=== PATIENT | female | born 1980 | race Caucasian/White ===

== ENCOUNTER → 2021-01-21 11:29 | Outpatient (BNVA) | payer OTHER, SELFPAY | PROVIDERS: Visit Provider Nurse Practitioner Family | DX: R82.90 Unspecified abnormal findings in urine (principal) | CPT/HCPCS: 81000 ==

== ENCOUNTER → 2021-03-14 11:20 | Outpatient (BNVA) | payer OTHER, SELFPAY | PROVIDERS: PCP Nurse Practitioner Family; Visit Provider Nurse Practitioner Family | DX: M25.50 Pain in unspecified joint (principal); R53.83 Other fatigue; R03.0 Elevated blood-pressure reading, without diagnosis of hypertension | CPT/HCPCS: 80053; 80061; 81000; 81025; 84443; 85025; 85651; 86000; 86140; 86618; 86666; 86757 ==